=== PATIENT | female | born 1975 | race Caucasian/White ===

== ENCOUNTER → 2016-06-07 | Outpatient (REF) | LOC: WSOH 08:00 | DX: Z02.89 Encounter for other administrative examinations (principal) ==

== ENCOUNTER → 2017-12-14 | Outpatient (CLI) | payer BC | LOC: MC.RAD 09:00 | DX: Z12.31 Encounter for screening mammogram for malignant neoplasm of breast (principal); Z98.82 Breast implant status ==

== ENCOUNTER → 2020-12-24 | Outpatient (CLI) | payer BC | LOC: MC.RAD 12:44 | DX: Z12.31 Encounter for screening mammogram for malignant neoplasm of breast (principal); Z98.82 Breast implant status ==